=== PATIENT | female | born 1995 | race Two or more races ===

== ENCOUNTER 2020-04-07 09:06 | Outpatient (REF) | payer OTHER, SELFPAY ==
[2020-04-07 12:11] LABS: HIV AB/AG Nonreactive (Nonreactive); HIV Num 1 0.26 S/CO (0.00-0.99)
[2020-04-07 12:19] LABS: HBc Num1 0.15 S/CO (0.00-0.79); Hepatitis B Core Antibody Nonreactive (Nonreactive); ~HepC Num1 0.13 S/CO (0.00-0.79); ~Hepatitis C Antibody Nonreactive (Nonreactive)
[2020-04-08 07:14] LABS: Syphilis Screen Nonreactive (Nonreactive)
[2020-04-08 09:36] LABS: CT PCR NOT DETECTED (Not Detect.); NG PCR NOT DETECTED (Not Detect.)
[2020-04-08 09:42] LABS: Herpes Simplex Type 1 IgG 0.93 index
[2020-04-08 11:12] LABS: DHEA Sulfate 285 mcg/dL (18-391)
[2020-04-08 13:03] LABS: BV Int Neg Control Negative (Negative); BV Int Pos Control Positive (Positive)
[2020-04-11 19:08] LABS: Follicle Stimulating Hormone 4.4 mIU/mL; Prolactin 9.5 ng/mL
[2020-04-11 19:11] LABS: Testosterone, Free 5.7 pg/mL (0.1-6.4); Testosterone, Total 48 ng/dL (2-45)
[2020-04-12 21:21] LABS: HPV mRNA E6/E7 rflx Not Detected (Not Detected)
== END 2020-04-07 09:07 | disposition home or self-care (01) ==
LOC: HO.LAB 09:06
PROVIDERS: PCP Internal Medicine; Visit Provider Advanced Practice Midwife
DX: Z01.419 Encounter for gynecological examination (general) (routine) without abnormal findings (principal); Z20.2 Contact with and (suspected) exposure to infections with a predominantly sexual mode of transmission; L70.9 Acne, unspecified; N92.6 Irregular menstruation, unspecified
CPT/HCPCS: 82627; 83001; 83498; 84146; 84402; 84403; 84443; 86695; 86696; 86704; 86780; 86803; 87389; 87480; 87491; 87510; 87591; 87624; 87625; 87660; 88142

== ENCOUNTER → 2020-04-25 12:08 | Outpatient (BNVA) | payer OTHER, SELFPAY | PROVIDERS: PCP Internal Medicine; Referring Provider Internal Medicine; Visit Provider Advanced Practice Midwife | DX: Z76.89 Persons encountering health services in other specified circumstances (principal) ==

== ENCOUNTER 2020-09-22 13:23 | Outpatient (REF) | payer OTHER, SELFPAY ==
[2020-09-23 05:31] LABS: Herpes Simplex Type 1 IgG 1.28 index; Herpes Simplex Type 2 IgG 6.72 index
[2020-09-23 08:00] LABS: Syphilis Screen Nonreactive (Nonreactive)
[2020-09-23 08:51] LABS: HBS Num1 4.69 mIU/mL (0-7.99); HBc Num1 0.21 S/CO (0.00-0.79); HIV AB/AG Nonreactive (Nonreactive); HIV Num 1 0.08 S/CO (0.00-0.99); Hepatitis B Core Antibody Nonreactive (Nonreactive); ~Hepatitis B Surface Antibody NONREACTIVE (Nonreactive)
[2020-09-23 09:02] LABS: HBsAGNum1 0.18 S/CO (0.00-0.99); Hepatitis A Antibody IgM 0.25 Index (0-0.79); Hepatitis B Surface Antigen Negative (Negative); ~HepC Num1 0.17 S/CO (0.00-0.79); ~Hepatitis A Antibody IgM Nonreactive (Nonreactive); ~Hepatitis C Antibody Nonreactive (Nonreactive)
== END 2020-09-22 13:24 | disposition home or self-care (01) ==
LOC: HO.HMGCLDS 13:23
PROVIDERS: PCP Internal Medicine; Visit Provider Internal Medicine
DX: Z01.84 Encounter for antibody response examination (principal); Z11.3 Encounter for screening for infections with a predominantly sexual mode of transmission; Z11.4 Encounter for screening for human immunodeficiency virus [HIV]
CPT/HCPCS: 36415; 86695; 86696; 86704; 86706; 86709; 86780; 86803; 87340; 87389

== ENCOUNTER 2020-11-18 09:05 | Outpatient (REF) | payer OTHER, SELFPAY ==
[2020-11-18 11:18] LABS: MANUAL DIFF FLAG NO
[2020-11-18 11:25] LABS: Basophils Percent Auto 0.4 % (0-2); Eosinophils Absolute Auto 0.1 X10*3/uL (0.0-0.4); Eosinophils Percent Auto 1.6 % (0-4); Hematocrit 41.1 % (37-47); Hemoglobin 13.2 g/dl (12.0-16.0); Imm Gran Abs Auto 0.01 X10*3/uL (0.00-0.03); Imm Gran Pct Auto 0.2 % (0.0-0.4); Lymphocytes Absolute Auto 1.8 X10*3/uL (1.2-4.9); Lymphocytes Percent Auto 37.9 % (20-40); Mean Corpuscular HGB Conc 32.1 g/dl (31.0-35.0); Mean Corpuscular Hemoglobin 26.9 pg (27.0-33.0); Mean Corpuscular Volume 83.9 fL (80-98); Mean Platelet Volume 11.2 fL (9.4-12.3); Monocytes Absolute Auto 0.5 X10*3/uL (0.1-1.2); Monocytes Percent Auto 9.7 % (2-11); Neutrophils Absolute Auto 2.4 X10*3/uL (2.0-8.3); Neutrophils Percent Auto 50.2 % (45-73); Platelet Count 246 X10*3/uL (160-400); Red Cell Distribution Width 17.1 % (11.0-16.0); White Blood Count 4.9 X10*3/uL (4.8-10.8)
[2020-11-18 11:44] LABS: Alanine Aminotransferase 8 U/L (0-31); Albumin Level 4.3 g/dL (3.5-5.0); Alkaline Phosphatase 57 U/L (39-117); Anion Gap 11 (12-20); Aspartate Amino Transferase 22 U/L (5-31); Bilirubin Total 0.7 mg/dL (0.0-1.0); Blood Urea Nitrogen 6 mg/dL (9-16); Calcium 9.5 mg/dL (8.4-10.2); Carbon Dioxide 29 mmol/L (22-29); Chloride 103 mmol/L (96-108); Cholesterol 152 mg/dL; Estimated Glomerular Filt Rate > 60; Glucose Fasting 85 mg/dL (60-99); HDL Cholesterol 65 mg/dL; LDL Cholesterol Calculated 68 mg/dl; Potassium 4.3 mmol/L (3.3-5.1); Sodium 139 mmol/L (135-145); Total Protein 7.2 g/dL (6.5-8.0); Triglycerides 99 mg/dL
[2020-11-19 17:46] LABS: Rubeola IgG (Measles) >300.00 AU/mL
== END 2020-11-18 09:06 | disposition home or self-care (01) ==
LOC: HO.HMGCLDS 09:05
PROVIDERS: PCP Internal Medicine; Visit Provider Internal Medicine
DX: Z00.01 Encounter for general adult medical examination with abnormal findings (principal); G43.909 Migraine, unspecified, not intractable, without status migrainosus; Z28.3 Underimmunization status
CPT/HCPCS: 36415; 80053; 80061; 85025; 86735; 86762; 86765; 86787

== ENCOUNTER 2020-12-28 21:47 | Emergency (ER) | payer OTHER, SELFPAY ==
--- NOTE | 2020-12-28 22:44 | ED.SKABFB ---
HPI - Skin/Abscess/Foreign Bdy General Chief complaint: Skin/Abscess/Foreign Body Stated complaint: cyst on thigh Time Seen by Provider: 12/28/20 22:39 Source: patient Mode of arrival: ambulatory Limitations: no limitations History of Present Illness HPI narrative: Patient is a 25-year-old female with no significant past medical history you states she has an abscess on her left upper thigh, on the backside. She states has been there about a week, she thought it started when she broke a mirror and a piece of glass got stuck in there but she states it has been painful and has had slight drainage since. She denies fevers or streaking down her leg. Related Data Previous Rx's Medication Instructions Recorded valacyclovir 500 mg tablet 500 mg PO BID #60 tab 04/07/20 (Valtrex) prenat.vits,salvatore,[id number]-[id number]-rdeje 1 tab PO BEDTIME #30 tab 04/25/20 metronidazole 500 mg tablet 500 mg PO BID 7 Days #14 tab 05/11/20 (Flagyl) Allergies Allergy/AdvReac Type Severity Reaction Status Date / Time No Known Allergies Allergy Verified 12/28/20 22:49 Review of Systems Review of Systems: Yes all other systems are reviewed and are negative PMFSH Past Medical History Medical History Chlamydia HSV (herpes simplex virus) infection Surgical History Hx of wisdom tooth extraction Family History Family History Father No problems noted. Mother No problems noted. Social History Social History Housing: House Alcohol intake: never Patient Tobacco Use Status: Never used Tobacco Second Hand Smoke Exposure: No Advance Directives: No Advance Directives Information Provided: Yes Patient : No Current occupational status: employed Sexual orientation: Straight/Heterosexual Gender identity: female Physical Exam Vital Signs: Vital Signs: Last Vital Signs Temp 99.7 F 12/28/20 22:45 Pulse 102 H 12/28/20 22:45 Resp 16 12/28/20 22:45 BP 114/72 08/04/21 22:45 Pulse Ox 98 12/28/20 22:45 Body Mass Index 18.8 Const: General: cooperative, healthy appearing, comfortable and no acute distress Nutritional Appearance: thin Orientation/consciousness: patient oriented x3 Eyes: General: appearance normal, both eyes and all related structures Resp: Effort & Inspection: normal respiratory effort Skin: Other: Left posterior upper thigh, 1 cm erythematous raised area with purulence drainage, no warmth or erythema surrounding the abscess. Neuro: General: patient oriented x3 Course Course Course Narrative: Please note, the wound was already draining and did not need to be incised. I did numb the area with 2% lidocaine so I could express the drainage better and break up the loculations. Patient tolerated the procedure well. Procedures Abscess I/D Site: lower extremity (Posterior upper thigh) Side (if applicable): left Sedation/analgesia: none Local Anesthetic: lidocaine 2% Amount of anesthesia used (mL): 5 Amount of fluid expressed (mL): 5 Sent for culture/gram staining?: No Irrigation: Yes Packing used?: iodoform Complications: pain Discharge Plan Discharge Clinical Impression: Abscess Patient Disposition: Home, Self-Care Instructions: Abscess Follow-up (ED) Additional Instructions: As discussed, please change bandages once a day, keep the wound clean and dry. Please come back on Saturday morning to have the wound checked and the iodoform removed. If you notice the wound has redness and warmth around it or you spike a fever, please come back to the emergency room at that time. I have given you proper sterile dressing to apply to the wound to keep it clean and dry. You can come here for wound check or any urgent care or your PCP. Prescriptions: No Action metronidazole [Flagyl] 500 mg tablet 500 mg PO BID 7 Days Qty: 14 RF: 0 valacyclovir [Valtrex] 500 mg tablet 500 mg PO BID Qty: 60 RF: 1 prenat.vits,salvatore,[id number] Tablet 1 tab PO BEDTIME Qty: 30 RF: 11
[2020-12-28 22:45] VITALS: BP 114/72; PULSE 102; RESP 16; TEMP 37.6; O2SAT 98; BMI 18.8
[2020-12-28] MEDS: Lidocaine HCl 2 % MPF 5 ML VIAL SUBCUT (23:03)
== END 2020-12-28 23:35 | disposition home or self-care (01) ==
PROVIDERS: Emergency Provider Emergency Medicine Emergency Medical Services; PCP Internal Medicine
DX: L02.416 Cutaneous abscess of left lower limb (principal)
CPT/HCPCS: 10060; 99283; 99284

== ENCOUNTER 2021-02-22 13:30 | Outpatient (REF) | payer OTHER, SELFPAY ==
[2021-02-22 16:59] LABS: HCG Quantitative 20 mIU/mL
== END 2021-02-22 13:31 | disposition home or self-care (01) ==
LOC: HO.HMGCLDS 13:30
PROVIDERS: PCP Internal Medicine; Visit Provider Internal Medicine
DX: N92.6 Irregular menstruation, unspecified (principal)
CPT/HCPCS: 36415; 84702

== ENCOUNTER 2021-02-24 17:17 | Emergency (ER) | payer OTHER, SELFPAY ==
[2021-02-24 17:23] VITALS: BP 154/90; PULSE 87; RESP 18; TEMP 36.6; O2SAT 100; BMI 18.8
[2021-02-24 17:44] LABS: MANUAL DIFF FLAG NO
[2021-02-24 17:48] LABS: Basophils Percent Auto 0.3 % (0-2); Eosinophils Absolute Auto 0.1 X10*3/uL (0.0-0.4); Eosinophils Percent Auto 0.8 % (0-4); Hematocrit 39.6 % (37-47); Hemoglobin 13.1 g/dl (12.0-16.0); Imm Gran Abs Auto 0.02 X10*3/uL (0.00-0.03); Imm Gran Pct Auto 0.3 % (0.0-0.4); Lymphocytes Absolute Auto 1.2 X10*3/uL (1.2-4.9); Lymphocytes Percent Auto 16.4 % (20-40); Mean Corpuscular HGB Conc 33.1 g/dl (31.0-35.0); Mean Corpuscular Hemoglobin 27.7 pg (27.0-33.0); Mean Corpuscular Volume 83.7 fL (80-98); Mean Platelet Volume 10.6 fL (9.4-12.3); Monocytes Absolute Auto 0.5 X10*3/uL (0.1-1.2); Monocytes Percent Auto 6.4 % (2-11); Neutrophils Absolute Auto 5.7 X10*3/uL (2.0-8.3); Neutrophils Percent Auto 75.8 % (45-73); Platelet Count 236 X10*3/uL (160-400); Red Blood Count 4.73 X10*6/uL (4.20-5.50); Red Cell Distribution Width 15.1 % (11.0-16.0); White Blood Count 7.5 X10*3/uL (4.8-10.8)
[2021-02-24 18:01] LABS: Anion Gap 11 (12-20); Blood Urea Nitrogen 6 mg/dL (9-16); Carbon Dioxide 25 mmol/L (22-29); Chloride 107 mmol/L (96-108); Creatinine Clr Calc Pharmacy 87.5; Estimated Glomerular Filt Rate > 60; Glucose Random 110 mg/dL (60-115); Potassium 3.9 mmol/L (3.3-5.1); Sodium 139 mmol/L (135-145)
[2021-02-24 18:08] LABS: HCG Quantitative 5 mIU/mL
--- NOTE | 2021-02-24 21:10 | ED.PREGNANCY ---
HPI - General Chief complaint: Vaginal Bleeding Stated complaint: Vaginal bleeding/3-4 wks preg Time Seen by Provider: 02/24/21 20:42 Source: patient Mode of arrival: ambulatory Limitations: no limitations History of Present Illness HPI Narrative: Patient presents complaining of vaginal bleeding. 0130 Patient was seen here 2 days ago had an Hcg of 20 today for hcg is 5. Patient states that she did pass some blood with clots. Patient denies pain today as back pain at this moment and is here of nausea vomiting or diarrhea. Related Data Previous Rx's Medication Instructions Recorded valacyclovir 500 mg tablet 500 mg PO BID #60 tab 04/07/20 (Valtrex) prenat.vits,salvatore,[id number] 1 tab PO BEDTIME #30 tab 04/25/20 metronidazole 500 mg tablet 500 mg PO BID 7 Days #14 tab 05/11/20 (Flagyl) Allergies Allergy/AdvReac Type Severity Reaction Status Date / Time No Known Allergies Allergy Verified 12/28/20 22:49 Review of Systems Review of Systems: Review of systems: General: Patient denies any fever chills recent illness or falls Musculoskeletal: Denies back pain or body aches or other injuries HEENT: denies headache, runny nose, ear pain Respiratory: denies shortness of breath, cough Cardiovascular: no chest pain or palpitations : denies dysuria, frequency Abdomen: no nausea vomiting denies abdominal pain Extremities: no swelling, no pain Skin: no diaphoresis Yes all other systems are reviewed and are negative PMFSH Past Medical History Medical History Chlamydia HSV (herpes simplex virus) infection Surgical History Hx of wisdom tooth extraction Family History Family History Father No problems noted. Mother No problems noted. Social History Social History Housing: House Alcohol intake: never Patient Tobacco Use Status: Never used Tobacco Second Hand Smoke Exposure: No Advance Directives: No Advance Directives Information Provided: No Patient : Yes Current occupational status: employed Sexual orientation: Straight/Heterosexual Gender identity: Female Physical Exam Vital Signs: Vital Signs: Last Vital Signs Temp 97.8 F 02/24/21 17:23 Pulse 87 02/24/21 17:23 Resp 18 02/24/21 17:23 BP 154/90 H 02/24/21 17:23 Pulse Ox 100 02/24/21 17:23 Body Mass Index 18.8 General: Well-appearing well-nourished in no signs of distress HEENT: Normocephalic atraumatic Neck: No signs of JVD, no masses no tenderness or lymphadenopathy Cardiovascular: Regular rate and rhythm Respiratory: Clear to auscultation bilaterally Abdomen: Soft nontender no masses rectal exam performed guiac negative quality assurance/r&d lab technician confirmed. Extremities: Normal pedal pulses no signs of edema Skin: Dry warm no rashes Back: No tenderness full ROM MDM - OB/Uterine Contractions MDM Narrative Medical decision making narrative: Patient has an hCG of 5 I do not think there is a need for ultrasound with an hCG Roberto I will watch the patient here labs are normal I will send the patient home headaches that she is having miscarriage. Lab Data Result diagrams: 02/24/21 17:35 02/24/21 17:35 Labs: Lab Results 02/24/21 02/24/21 Range/Units 17:35 17:35 WBC 7.5 (4.8-10.8) X10*3/uL RBC 4.73 (4.20-5.50) X10*6/uL Hgb 13.1 (12.0-16.0) g/dl Hct 39.6 (37-47) % MCV 83.7 (80-98) fL MCH 27.7 (27.0-33.0) pg MCHC 33.1 (31.0-35.0) g/dl RDW 15.1 (11.0-16.0) % Plt Count 236 (160-400) X10*3/uL MPV 10.6 (9.4-12.3) fL Immature Gran % (Auto) 0.3 (0.0-0.4) % Neut % (Auto) 75.8 H (45-73) % Lymph % (Auto) 16.4 L (20-40) % [place] % (Auto) 6.4 (2-11) % Eos % (Auto) 0.8 (0-4) % Baso % (Auto) 0.3 (0-2) % Lymph # (Auto) 1.2 (1.2-4.9) X10*3/uL [place] # (Auto) 0.5 (0.1-1.2) X10*3/uL Eos # (Auto) 0.1 (0.0-0.4) X10*3/uL Baso # (Auto) 0.0 (0.0-0.2) X10*3/uL Abs Immat Gran (auto) 0.02 (0.00-0.03) X10*3/uL Absolute Neuts (auto) 5.7 (2.0-8.3) X10*3/uL Absolute Nucleated RBC 0.000 (0.0-0.012) X10*3/uL Nucleated RBC % (auto) 0.0 (0.0-0.2) /100WBC Sodium 139 (135-145) mmol/L Potassium 3.9 (3.3-5.1) mmol/L Chloride 107 (96-108) mmol/L Carbon Dioxide 25 (22-29) mmol/L Anion Gap 11 L (12-20) BUN 6 L (9-16) mg/dL Creatinine 0.71 (0.5-1.4) mg/dL Estim Creat Clear Calc 87.5 Estimated GFR > 60 Random Glucose 110 (60-115) mg/dL Calcium 10.0 (8.4-10.2) mg/dL Beta HCG, Quant 5 mIU/mL Discharge Plan Discharge Clinical Impression: , threatened, Miscarriage Patient Disposition: Home, Self-Care Instructions: Miscarriage (ED), Threatened Miscarriage (ED) Additional Instructions: Please call felt the need to have your HCT checked in the next week. If you have any other concerns please do not hesitate to come back to the emergency department. Prescriptions: No Action metronidazole [Flagyl] 500 mg tablet 500 mg PO BID 7 Days Qty: 14 RF: 0 valacyclovir [Valtrex] 500 mg tablet 500 mg PO BID Qty: 60 RF: 1 prenat.vits,salvatore,[id number] Tablet 1 tab PO BEDTIME Qty: 30 RF: 11
== END 2021-02-24 21:28 | disposition home or self-care (01) ==
PROVIDERS: Emergency Medicine Emergency Medical Services; Emergency Provider Student in an Organized Health Care Education/Training Program; PCP Internal Medicine
DX: O20.0 Threatened abortion (principal); Z79.899 Other long term (current) drug therapy
CPT/HCPCS: 36415; 80048; 84702; 85025; 99283

== ENCOUNTER 2021-04-10 08:12 | Outpatient (REF) | payer OTHER, SELFPAY ==
[2021-04-10 14:30] LABS: CT PCR NOT DETECTED (Not Detect.); NG PCR NOT DETECTED (Not Detect.)
== END 2021-04-10 08:13 | disposition home or self-care (01) ==
LOC: HO.LAB 08:12
PROVIDERS: PCP Internal Medicine; Visit Provider Advanced Practice Midwife
DX: Z01.411 Encounter for gynecological examination (general) (routine) with abnormal findings (principal); N92.6 Irregular menstruation, unspecified; Z20.2 Contact with and (suspected) exposure to infections with a predominantly sexual mode of transmission
CPT/HCPCS: 81025; 87491; 87591

== ENCOUNTER 2021-06-09 10:36 | Outpatient (REF) | payer OTHER, SELFPAY ==
[2021-06-09 12:20] LABS: HCG Quantitative 27 mIU/mL
== END 2021-06-09 10:37 | disposition home or self-care (01) ==
LOC: HO.LAB 10:36
PROVIDERS: PCP Internal Medicine; Visit Provider Advanced Practice Midwife
DX: Z34.90 Encounter for supervision of normal pregnancy, unspecified, unspecified trimester (principal); Z32.01 Encounter for pregnancy test, result positive; Z87.59 Personal history of other complications of pregnancy, childbirth and the puerperium
CPT/HCPCS: 36415; 81025; 84702; 99212

== ENCOUNTER 2021-06-12 10:51 | Outpatient (REF) | payer OTHER, SELFPAY ==
[2021-06-12 12:14] LABS: HCG Quantitative 147 mIU/mL
== END 2021-06-12 10:52 | disposition home or self-care (01) ==
LOC: HO.LAB 10:51
PROVIDERS: PCP Internal Medicine; Visit Provider Advanced Practice Midwife
DX: N92.6 Irregular menstruation, unspecified (principal); Z87.59 Personal history of other complications of pregnancy, childbirth and the puerperium
CPT/HCPCS: 36415; 84702

== ENCOUNTER 2021-06-30 13:29 | Outpatient (REF) | payer OTHER, SELFPAY ==
--- NOTE | ~2021-06-30 | US_ITS ---
EXAMINATION: OBSTETRICAL ULTRASOUND, FIRST TRIMESTER HISTORY: 25-year-old with the uncertain dates LMP: 04/10/2021 COMPARISON: None TECHNIQUE: Real time transabdominal imaging with color and M-mode Doppler. FINDINGS: A single, live IUP CRL of 5.7 mm c/w 6.3wks is noted. Heart Rate: 125 beats per minute. Both maternal ovaries are seen and appear normal. GESTATIONAL AGE: 1. GA from LMP: 11.4 wks 2. GA from AUA: 6.3 wks ESTIMATED DATE OF DELIVERY: 1. DAVINA from LMP: 01/15/2022 2. DAVINA from AUA: 02/20/2022 US/US OB pelvic and transvaginal IMPRESSION: 1. A single live IUP 2. Size less than dates, CRL corresponds to 6.3 weeks of gestation. Adjust her DAVINA to 02/20/2022 based on today's examination. 3. Normal ovaries Thank you very much for this referral. This note was generated with a voice recognition program. Please excuse any errors which may have been overlooked during my review of this note. Sometimes these errors may affect the content or meaning of a given sentence.
== END 2021-06-30 13:30 | disposition home or self-care (01) ==
LOC: HO.US 13:29
PROVIDERS: Visit Provider Advanced Practice Midwife
DX: N92.6 Irregular menstruation, unspecified (principal)
CPT/HCPCS: 76801; 76817

== ENCOUNTER 2021-07-26 15:13 | Emergency (ER) | payer MEDICAID, SELFPAY ==
--- NOTE | ~2021-07-26 | US_ITS ---
EXAMINATION: ULTRASOUND CLINICAL INFORMATION: 10 weeks with vaginal bleeding COMPARISON: 06/30/2021 TECHNIQUE: Limited ultrasound was performed. FINDINGS: A gestational sac is present with a fetus that was active during the exam. A normal heartbeat of 169 was present. [place]-rump length measurements correspond with a gestational age of 10 weeks 1 day with an DAVINA of 02/20/2022. There is a small area of subchorionic hemorrhage seen measuring 1.2 x 0.8 x 0.9 cm. The right ovary appeared normal measuring 2.6 x 2.1 x 2.6 cm The left ovary could not be seen. No free intraperitoneal fluid was detected. US/US OB limited IMPRESSION: Normal-appearing live fetus with gestational age estimated at 10 weeks 1 day with an DAVINA of 02/20/2022. A small area of subchorionic hemorrhage is noted.
[2021-07-26 16:35] VITALS: BP 119/69; PULSE 95; RESP 18; TEMP 37.1; O2SAT 100; BMI 18.8
[2021-07-26 16:50] LABS: MANUAL DIFF FLAG NO
[2021-07-26 16:52] LABS: Basophils Percent Auto 0.2 % (0-2); Eosinophils Percent Auto 0.2 % (0-4); Hematocrit 36.6 % (37.0-47.0); Hemoglobin 12.1 g/dl (12.0-16.0); Imm Gran Abs Auto 0.02 X10*3/uL (0.00-0.03); Imm Gran Pct Auto 0.2 % (0.0-0.4); Lymphocytes Absolute Auto 1.4 X10*3/uL (1.2-4.9); Lymphocytes Percent Auto 16.6 % (20-40); Mean Corpuscular HGB Conc 33.1 g/dl (31.0-35.0); Mean Corpuscular Volume 81.7 fL (80.0-98.0); Mean Platelet Volume 10.9 fL (9.4-12.3); Monocytes Absolute Auto 0.6 X10*3/uL (0.1-1.2); Monocytes Percent Auto 6.7 % (2-11); Neutrophils Absolute Auto 6.6 x10*3/uL (2.0-8.3); Neutrophils Percent Auto 76.1 % (45-73); Platelet Count 242 X10*3/uL (160-400); Red Blood Count 4.48 X10*6/uL (4.20-5.50); Red Cell Distribution Width 15.6 % (11.0-16.0); White Blood Count 8.7 X10*3/uL (4.8-10.8)
[2021-07-26 17:06] LABS: Anion Gap 11 (12-20); Blood Urea Nitrogen 8 mg/dL (9-16); Calcium 9.5 mg/dL (8.4-10.2); Carbon Dioxide 24 mmol/L (22-29); Chloride 105 mmol/L (96-108); Creatinine Clr Calc Pharmacy 101.8; Estimated Glomerular Filt Rate > 60; Glucose Random 86 mg/dL (60-115); Sodium 136 mmol/L (135-145)
--- NOTE | 2021-07-26 18:58 | PC.NURSE ---
at bedside for primary eval.
--- NOTE | 2021-07-26 19:03 | ED_ITS ---
HPI - General Adult General Chief complaint: OB Stated complaint: 10 weeks , bleeding Time Seen by Provider: 07/26/21 18:57 Source: patient Mode of arrival: ambulatory Limitations: no limitations History of Present Illness HPI narrative: 25 years old female 10 weeks came in for evaluation of vaginal bleeding. About 8 hours ago patient felt a gush of blood coming out of her vagina, patient been bleeding since then, use 2 pads with spots of blood in it but not soaked. Patient declined any trauma to the pelvic area, no history of abnormality. Related Data Previous Rx's Medication Instructions Recorded valacyclovir 500 mg tablet 500 mg PO BID #60 tab 04/07/20 (Valtrex) metronidazole 500 mg tablet 500 mg PO BID 7 Days #14 tab 05/11/20 (Flagyl) prenat.vits,salvatore,[id number]-hzla-ksxbp 1 tab PO BEDTIME #30 tab 04/10/21 cephalexin 500 mg capsule 500 mg PO Q8H #30 cap 05/10/21 sulfamethoxazole 800 1 tab PO Q12H #14 tab 05/10/21 mg-trimethoprim 160 mg tablet (Bactrim DS) Allergies Allergy/AdvReac Type Severity Reaction Status Date / Time No Known Allergies Allergy Verified 07/26/21 16:33 Review of Systems Review of Systems: All other systems are reviewed and are negative Constitutional: Reports as per HPI and Reports no additional constitutional complaints Eyes: Reports as per HPI and Reports no additional eye complaints Reports system reviewed and no additional complaints, except as documented Cardiovascular: Reports as per HPI and Reports no additional cardiovascular complaints Respiratory: Reports as per HPI and Reports no additional respiratory complaints Gastrointestinal: Reports as per HPI and Reports no additional gastrointestinal complaints Genitourinary: Reports no additional female genitourinary complaints Musculoskeletal: Reports no additional musculoskeletal complaints Skin/Breast: Reports system reviewed and no additional complaints, except as doc u Psychiatric: Reports no additional psychiatric complaints Endocrine: Reports no additional endocrine complaints Hematologic/Lymphatic: Reports no additional hematologic/lymphatic complaints Allergic/Immunologic: Reports no additional allergic/immunologic complaints Reports system reviewed and no additional complaints, except as documented and Reports Abnormal speech present [facility] Past Medical History Medical History History of spontaneous HSV (herpes simplex virus) infection Surgical History Hx of wisdom tooth extraction Family History Family History Father No problems noted. Mother Colon cancer Social History Social History Housing: House Alcohol intake: never Patient Tobacco Use Status: Never used Tobacco Second Hand Smoke Exposure: No Advance Directives: No Advance Directives Information Provided: No Patient : Yes Current occupational status: employed Sexual orientation: Straight/Heterosexual Gender identity: Female Physical Exam ED Vital Signs: Vital Signs - 24 hr 07/26/21 16:35 07/26/21 19:12 Temperature 98.7 F 98.1 F Pulse Rate 95 72 Respiratory Rate 18 14 Blood Pressure 119/69 120/74 Pulse Oximetry 100 100 BMI result Body Mass Index 18.8 Vital signs have been reviewed as appeared to be correct. Blood pressure normal. Heart rate normal. Respiration rate normal. Temperature normal. Oxygen saturation normal. Appearance: Alert. Oriented X3. No acute distress. Head: Normal external exam. Normocephalic. Atraumatic. No Portillo signs noted. No raccoon eyes noted Eyes: PERRLA. EOMI. Conjunctiva and sclera normal. Eyelids normal. ENT: TM's Normal. Pharynx normal. Uvula midline. Moist mucous membranes. No trismus noted. No drooling noted. No muffled voice noted. Neck: Normal inspection. Neck supple. FROM. No adenopathy. Thyroid Normal. No meningeal signs. No neck mass noted. CVS: Normal heart rate and rhythm. Heart sound normal. No murmurs noted. Pulses normal throughout. Respiratory: No respiratory distress. Painless inspiration. Breath sounds normal. No wheezes/rales/rhonchi noted. Chest nontender. No accessory muscle usage noted or decreased air movement noted. Abdomen: Soft and nontender. Bowel sounds normal in all 4 quadrants. No distention noted. No organomegaly noted. No visible injury noted. Back: No CVA tenderness. Full range of motion noted. Skin: Skin warm and dry. Normal skin color. Normal skin turgor. No rashes/lesions/lacerations noted. Extremities: No lower extremity edema. Extremities exhibit normal range of motion. Extremities nontender. Neuro: Oriented X 3. Cranial nerve exam: II-XII are grossly intact No motor deficit. No sensory deficit. Reflexes normal. Course Course Course Narrative: Assessment and plan. 25-year-old female 10 weeks came in with vaginal bleeding, labs and ultrasound are consistent with threatened . Patient was instructed to rest, no strenuous activity, no intercourse, and follow-up with her OBGYN. Blood type is A-positive. Medical Decision Making Medical Records Medical records reviewed: Yes I reviewed the patient's medical records. Lab Data Lab results reviewed: Yes I reviewed the patient's lab results. Result diagrams: 07/26/21 16:41 07/26/21 16:41 Labs: Lab Results 07/26/21 07/26/21 07/26/21 Range/Units 16:41 16:41 16:41 WBC 8.7 (4.8-10.8) X10*3/uL RBC 4.48 (4.20-5.50) X10*6/uL Hgb 12.1 (12.0-16.0) g/dl Hct 36.6 L (37.0-47.0) % MCV 81.7 (80.0-98.0) fL MCH 27.0 (27.0-33.0) pg MCHC 33.1 (31.0-35.0) g/dl RDW 15.6 (11.0-16.0) % Plt Count 242 (160-400) X10*3/uL MPV 10.9 (9.4-12.3) fL Immature Gran % (Auto) 0.2 (0.0-0.4) % Neut % (Auto) 76.1 H (45-73) % Lymph % (Auto) 16.6 L (20-40) % [place] % (Auto) 6.7 (2-11) % Eos % (Auto) 0.2 (0-4) % Baso % (Auto) 0.2 (0-2) % Lymph # (Auto) 1.4 (1.2-4.9) X10*3/uL [place] # (Auto) 0.6 (0.1-1.2) X10*3/uL Eos # (Auto) 0.0 (0.0-0.4) X10*3/uL Baso # (Auto) 0.0 (0.0-0.2) X10*3/uL Abs Immat Gran (auto) 0.02 (0.00-0.03) X10*3/uL Absolute Neuts (auto) 6.6 (2.0-8.3) x10*3/uL Absolute Nucleated RBC 0.000 (0.0-0.012) X10*3/uL Nucleated RBC % (auto) 0.0 (0.0-0.2) /100WBC Sodium 136 (135-145) mmol/L Potassium 4.0 (3.3-5.1) mmol/L Chloride 105 (96-108) mmol/L Carbon Dioxide 24 (22-29) mmol/L Anion Gap 11 L (12-20) BUN 8 L (9-16) mg/dL Creatinine 0.61 (0.5-1.4) mg/dL Estim Creat Clear Calc 101.8 Estimated GFR > 60 Random Glucose 86 (60-115) mg/dL Calcium 9.5 (8.4-10.2) mg/dL Beta HCG, Quant 660013 mIU/mL Blood Type A Positive Imaging Data Pelvic ultrasound: Attestation: I personally reviewed and interpreted this imaging study as follows: Radiologist's impression: Normal-appearing live fetus with gestational age estimated at 10 weeks 1 day with an DAVINA of 02/20/2022. A small area of subchorionic hemorrhage is noted.? Discharge Plan Discharge Clinical Impression: Threatened Patient Disposition: Home, Self-Care Instructions: Threatened Miscarriage (ED) Additional Instructions: Avoid any strenuous activity, no exercising, no heavy lifting, no bending, no bearing down, no sexual intercourse. Prescriptions: No Action metronidazole [Flagyl] 500 mg tablet 500 mg PO BID 7 Days Qty: 14 0RF cephalexin 500 mg capsule 500 mg PO Q8H Qty: 30 0RF sulfamethoxazole-trimethoprim [Bactrim DS] 800-160 mg tablet 1 tab PO Q12H Qty: 14 0RF valacyclovir [Valtrex] 500 mg tablet 500 mg PO BID Qty: 60 1RF Rx Instructions: take with onset on of symptoms, take for three days, may repeat dosing per episode prn prenat.vits,salvatore,[id number]-ttco-eiesk Tablet 1 tab PO BEDTIME Qty: 30 11RF Referrals: Cal Gallardo MD [Primary Care Provider] - 2 days Stand Alone Forms: Work/School Release
[2021-07-26 19:12] VITALS: BP 120/74; PULSE 72; RESP 14; TEMP 36.7; O2SAT 100
--- NOTE | 2021-07-26 19:51 | PC.NURSE ---
Pt off to U/S @ this time.
--- NOTE | 2021-07-26 21:13 | PC.NURSE ---
at bedside discussing U/S results.
== END 2021-07-26 21:36 | disposition home or self-care (01) ==
PROVIDERS: Emergency Provider Emergency Medicine; PCP Internal Medicine
DX: O20.0 Threatened abortion (principal); Z3A.10 10 weeks gestation of pregnancy
CPT/HCPCS: 36415; 76815; 80048; 84702; 85025; 86900; 86901; 99283; 99284

== ENCOUNTER 2021-08-01 13:24 | Outpatient (REF) | payer MEDICAID, SELFPAY ==
[2021-08-02 09:35] LABS: CT PCR NOT DETECTED (Not Detect.); NG PCR NOT DETECTED (Not Detect.)
[2021-08-02 10:07] LABS: BV Int Neg Control Negative (Negative); BV Int Pos Control Positive (Positive)
== END 2021-08-01 13:25 | disposition home or self-care (01) ==
LOC: HO.LAB 13:24
PROVIDERS: PCP Internal Medicine; Visit Provider Advanced Practice Midwife
DX: O46.90 Antepartum hemorrhage, unspecified, unspecified trimester (principal)
CPT/HCPCS: 87480; 87491; 87510; 87591; 87660; 99212

== ENCOUNTER → 2021-08-16 09:52 | Outpatient (BNVA) | payer MEDICAID, SELFPAY | PROVIDERS: PCP Internal Medicine; Visit Provider Advanced Practice Midwife | DX: O98.311 Other infections with a predominantly sexual mode of transmission complicating pregnancy, first trimester (principal); Z3A.13 13 weeks gestation of pregnancy | CPT/HCPCS: 99212 ==

== ENCOUNTER 2021-08-21 12:55 | Outpatient (REF) | payer MEDICAID, SELFPAY ==
[2021-08-21 14:55] LABS: Hematocrit 37.3 % (37.0-47.0); Hemoglobin 12.4 g/dl (12.0-16.0); Mean Corpuscular HGB Conc 33.2 g/dl (31.0-35.0); Mean Corpuscular Hemoglobin 27.3 pg (27.0-33.0); Mean Platelet Volume 10.6 fL (9.4-12.3); Platelet Count 254 X10*3/uL (160-400); Red Blood Count 4.55 X10*6/uL (4.20-5.50); White Blood Count 8.6 X10*3/uL (4.8-10.8)
[2021-08-21 15:14] LABS: Glucose 1 Hour PP 50gm Dose 108 mg/dL (60-140)
[2021-08-21 15:21] LABS: Amphetamine Screen Urine Not Detected (Not Detect); Barbiturates, Urine Not Detected (Not Detect); Benzodiazepines Screen Urine Not Detected (Not Detect); Cannabinoid Screen Urine Not Detected (Not Detect); Cocaine Screen Urine Not Detected (Not Detect); Fentanyl, urine Not Detected (Not Detect); Opiate Screen Urine Not Detected (Not Detect); Phencyclidine Screen Urine Not Detected (Not Detect)
[2021-08-21 15:33] LABS: Syphilis Screen Nonreactive (Nonreactive)
[2021-08-22 04:20] LABS: HBsAGNum1 0.22 S/CO (0.00-0.99); Hepatitis B Surface Antigen Negative (Negative)
[2021-08-22 04:26] LABS: HIV AB/AG Nonreactive (Nonreactive); HIV Num 1 0.12 S/CO (0.00-0.99); ~Hepatitis C Antibody Nonreactive (Nonreactive)
== END 2021-08-21 12:56 | disposition home or self-care (01) ==
LOC: HO.LAB 12:55
PROVIDERS: Visit Provider Advanced Practice Midwife
DX: Z32.01 Encounter for pregnancy test, result positive (principal)
CPT/HCPCS: 80307; 85027; 86762; 86780; 86787; 86803; 86850; 86900; 86901; 87086; 87088; 87186; 87340; 87389

== ENCOUNTER 2021-08-25 11:31 | Outpatient (REF) | payer MEDICAID, SELFPAY ==
--- NOTE | ~2021-08-25 | US_ITS ---
EXAMINATION: OBSTETRICAL ULTRASOUND, FIRST TRIMESTER HISTORY: 26-year-old at the 14.3 weeks of gestation NT screening COMPARISON: 07/26/2021 TECHNIQUE: Real time transabdominal imaging with color and M-mode Doppler. FINDINGS: A single, live IUP CRL of 81.9 mm c/w 14.2wks is noted. Heart Rate: 150 beats per minute. Normal yolk sac seen. NT was 1.23.mm. NB Present The embryo appears sonographically wnl for this GA. Both maternal ovaries are seen and appear normal. GESTATIONAL AGE: 1. Established GA: 14.3 wks 2. GA from AUA: 14.2 wks ESTIMATED DATE OF DELIVERY: 1. Established DAVINA: 02/20/2022 2. DAVINA from AUA: 02/21/2022 US/US OB 1T nuc measure IMPRESSION: 1. A single live IUP 2. Size equals dates 3. NT of 1.2 to 3 mm MFM Consultation: I reviewed the ultrasound findings along with significance of NT measurement. The NT of less than 3mm is generally reassuring. However, the sensitivity for T21 detection is only 60%. I reviewed the availability of serum aneuploidy screening which includes cell-free DNA and placental protein based tests. I discussed the sensitivity, false-positive rate, and other limitations associated with each test. I also reviewed the availability of invasive diagnostic tests that are associated small but definite risk of miscarriage. We also reviewed the differences between screening tests and diagnostic tests. After our discussion, she opted for the First trimester screening that is based on cell-free DNA or non-invasive testing (NIPT). The result will be faxed to your office in approximately 7 days. A follow up at 18 weeks for survey has been scheduled. Thank you very much for this referral. Total time 30 minutes. The time spent was devoted to counseling the patient about the disease and diagnosis, coordinating care including reviewing her records, pertinent lab data and studies, as well as discussing diagnostic evaluation and workup, plan therapeutic interventions and future disposition of care. This includes any additional research needed to obtain further information in formulating the plan of care of this patient. This note was generated with a voice recognition program. Please excuse any errors which may have been overlooked during my review of this note. Sometimes these errors may affect the content or meaning of a given sentence.
== END 2021-08-25 11:32 | disposition home or self-care (01) ==
LOC: HO.US 11:31
PROVIDERS: PCP Internal Medicine; Visit Provider Advanced Practice Midwife
DX: Z34.92 Encounter for supervision of normal pregnancy, unspecified, second trimester (principal); Z3A.14 14 weeks gestation of pregnancy
CPT/HCPCS: 76813

== ENCOUNTER → 2021-09-07 08:23 | Outpatient (BNVA) | payer MEDICAID, SELFPAY | PROVIDERS: Visit Provider Advanced Practice Midwife | DX: O23.42 Unspecified infection of urinary tract in pregnancy, second trimester (principal); N39.0 Urinary tract infection, site not specified; O09.292 Supervision of pregnancy with other poor reproductive or obstetric history, second trimester; Z3A.16 16 weeks gestation of pregnancy | CPT/HCPCS: 81003; 99212 ==

== ENCOUNTER 2021-09-22 10:35 | Outpatient (REF) | payer MEDICAID, SELFPAY ==
--- NOTE | ~2021-09-22 | US_ITS ---
EXAMINATION: US OBSTETRICAL CLINICAL INFORMATION: 26-year-old at 18.3 weeks of gestation Suspected anomaly COMPARISON: 08/25/2021 TECHNIQUE: Real-time transabdominal ultrasound was performed using C1-5 megahertz transducer. FINDINGS: A single, active, fetus is seen in vertex presentation. The placenta is anterior without previa, and the amniotic fluid volume is wnl. MEASUREMENTS: 1. Biparietal Diameter: 3.8 cm; 17.4 wks 2. Occipital Frontal Diameter: 5.1 cm 3. Head Circumference: 14.2 cm; 17.4 wks 4. Abdominal Circumference: 12.2 cm; 18.0 wks 5. Femur Length: 2.7 cm; 18.2 wks 6. Tibia Length: 2.3 cm; 18.1 wks 7. Ulna Length: 2.3 cm; 18.2 wks 8. Lateral ventricle: 5.8 cm 9. Cerebellum: 1.84 cm; 19.1 wks 10. Cisterna Magna: 0.3 cm 11. Nuchal Fold: 4.3 mm 12. Heart Rate: 149 beats per minute Rt ovary: normal Lt ovary: normal Cervical length 2.9 cm on T/A. GESTATIONAL AGE: 1. Established GA: 18.3 wks 2. GA from [facility]: 17.6 wks ESTIMATED DATE OF DELIVERY: 1. Established DAVINA: 02/20/2022 2. DAVINA from [facility]: 02/24/2022 ANATOMY: The visualized anatomy includes but not limited to: 1. Cranium: Normal 2. Intracranial anatomy: cavum septum pellucidi, lateral ventricles, choroid plexus, cerebellum, posterior fossa, third and fourth ventricles. 3. face: orbits, lip/palate, profile, nasal bone 4. Heart: four-chamber view of the heart, ventricular septum, foramen ovale, pulmonary vein, left and right outflow tracts, three-vessel view, 3 vessel trachea view, aortic and ductal arches, situs.. 5. Diaphragm: Normal 6. Abdominal wall: Normal 7. Cord Insertion: Normal 8. Spine: Cervical, thoracic, lumbar, sacral. 9. Stomach: Normal size and shape 10. Right Kidney: Normal 11. Left Kidney: Normal 12. 3 vessel cord: Normal 13. Upper extremity: Open hands, fifth digit. 14. Lower extremity: Tibia, fibula, bilateral feet. 15. Bladder: Normal 16. Genitalia: Female, patient aware US/US OB /maternal detail IMPRESSION: 1. Single, living, intrauterine with appropriate biometry. 2. Normal survey DISCUSSION: I reviewed today's ultrasound findings. We discussed the limitations of ultrasound in diagnosing aneuploidy and other congenital abnormalities. I reviewed the differences between screening test and diagnostic test. Amniocentesis was discussed and declined. She was informed that the baseline incidence of congenital abnormalities is approximately 3-5%. Not all these conditions are diagnosable in utero. RECOMMENDATIONS: 1. Follow-up when necessary Thank you for allowing me to participate in her care. Total time 20 minutes. The time spent was devoted to counseling the patient about the disease and diagnosis, coordinating care including reviewing her records, pertinent lab data and studies, as well as discussing diagnostic evaluation and workup, plan therapeutic interventions and future disposition of care. This includes any additional research needed to obtain further information in formulating the plan of care of this patient. This note was generated with a voice recognition program. Please excuse any errors which may have been overlooked during my review of this note. Sometimes these errors may affect the content or meaning of a given sentence.
== END 2021-09-22 10:36 | disposition home or self-care (01) ==
LOC: HO.US 10:35
PROVIDERS: Visit Provider Advanced Practice Midwife
DX: Z36.3 Encounter for antenatal screening for malformations (principal); Z34.92 Encounter for supervision of normal pregnancy, unspecified, second trimester; Z3A.18 18 weeks gestation of pregnancy
CPT/HCPCS: 76811

== ENCOUNTER → 2021-10-06 09:36 | Outpatient (BNVA) | payer MEDICAID, SELFPAY | PROVIDERS: Visit Provider Advanced Practice Midwife | DX: O23.42 Unspecified infection of urinary tract in pregnancy, second trimester (principal); Z3A.20 20 weeks gestation of pregnancy | CPT/HCPCS: 99212 ==

== ENCOUNTER 2021-10-07 10:04 | Outpatient (REF) | payer MEDICAID, SELFPAY ==
[2021-10-07 11:05] LABS: Appearance Urine HAZY; Color Urine YELLOW; Glucose Urine UA NEG (NEG); Leukocyte Esterase Urine NEG (NEG); Nitrite Urine NEG (NEG); Specific Gravity - Urine 1.025 (1.005-1.025); Urine Blood NEG (NEG); Urine Ketones NEG (NEG); Urine Protein NEG (NEG-TRACE)
== END 2021-10-07 10:05 | disposition home or self-care (01) ==
LOC: HO.LAB 10:04
PROVIDERS: Visit Provider Advanced Practice Midwife
DX: O23.42 Unspecified infection of urinary tract in pregnancy, second trimester (principal)
CPT/HCPCS: 81003; 87086

== ENCOUNTER → 2021-11-03 09:29 | Outpatient (BNVA) | payer MEDICAID, SELFPAY | PROVIDERS: Visit Provider Advanced Practice Midwife | DX: O98.312 Other infections with a predominantly sexual mode of transmission complicating pregnancy, second trimester (principal); A60.00 Herpesviral infection of urogenital system, unspecified; Z3A.24 24 weeks gestation of pregnancy | CPT/HCPCS: 99212 ==

== ENCOUNTER 2021-11-30 10:06 | Outpatient (REF) | payer OTHER, SELFPAY ==
[2021-11-30 12:02] LABS: Hematocrit 35.3 % (37.0-47.0); Hemoglobin 11.7 g/dl (12.0-16.0); Mean Corpuscular HGB Conc 33.1 g/dl (31.0-35.0); Mean Corpuscular Hemoglobin 28.6 pg (27.0-33.0); Mean Corpuscular Volume 86.3 fL (80.0-98.0); Mean Platelet Volume 10.5 fL (9.4-12.3); Platelet Count 241 X10*3/uL (160-400); Red Blood Count 4.09 X10*6/uL (4.20-5.50); Red Cell Distribution Width 14.5 % (11.0-16.0)
[2021-11-30 12:19] LABS: Glucose 1 Hour PP 50gm Dose 144 mg/dL (60-140)
[2021-11-30 12:31] LABS: Alanine Aminotransferase 11 U/L (0-31); Albumin Level 3.7 g/dL (3.5-5.0); Alkaline Phosphatase 88 U/L (39-117); Anion Gap 11 (12-20); Aspartate Amino Transferase 20 U/L (5-31); Bilirubin Total 0.8 mg/dL (0.0-1.0); Blood Urea Nitrogen 5 mg/dL (9-16); Calcium 8.9 mg/dL (8.4-10.2); Carbon Dioxide 25 mmol/L (22-29); Chloride 103 mmol/L (96-108); Estimated Glomerular Filt Rate > 60; Glucose Random 148 mg/dL (60-115); Sodium 135 mmol/L (135-145)
[2021-12-01 07:36] LABS: Syphilis Screen Nonreactive (Nonreactive)
== END 2021-11-30 10:07 | disposition home or self-care (01) ==
LOC: HO.LAB 10:06
PROVIDERS: Absent Provider Advanced Practice Midwife; PCP Internal Medicine; Visit Provider Internal Medicine
DX: Z34.92 Encounter for supervision of normal pregnancy, unspecified, second trimester (principal)
CPT/HCPCS: 36415; 80053; 84443; 85027; 86780

== ENCOUNTER → 2021-12-01 09:18 | Outpatient (BNVA) | payer OTHER, SELFPAY | PROVIDERS: PCP Internal Medicine; Visit Provider Advanced Practice Midwife | DX: O99.810 Abnormal glucose complicating pregnancy (principal); O98.313 Other infections with a predominantly sexual mode of transmission complicating pregnancy, third trimester; A60.00 Herpesviral infection of urogenital system, unspecified; Z3A.28 28 weeks gestation of pregnancy | CPT/HCPCS: 81003; 99212 ==

== ENCOUNTER 2021-12-04 07:01 | Outpatient (REF) | payer OTHER, SELFPAY | END 2021-12-04 07:02 | disposition home or self-care (01) | LOC: HO.LAB 07:01 | PROVIDERS: PCP Internal Medicine; Visit Provider Advanced Practice Midwife | DX: Z13.89 Encounter for screening for other disorder (principal) | CPT/HCPCS: 36415; 82951 ==

== ENCOUNTER 2021-12-08 07:59 | Outpatient (REF) | payer OTHER, SELFPAY ==
[2021-12-08 08:59] LABS: Glucose Fasting 71 mg/dL (60-99)
[2021-12-08 10:10] LABS: Glucose 1 Hour 100 mg/dL
[2021-12-08 11:05] LABS: Glucose 2 Hour 137 mg/dL
[2021-12-08 12:42] LABS: Glucose 3 Hour 125 mg/dL
== END 2021-12-08 08:00 | disposition home or self-care (01) ==
LOC: HO.LAB 07:59
PROVIDERS: PCP Internal Medicine; Visit Provider Advanced Practice Midwife
DX: O99.810 Abnormal glucose complicating pregnancy (principal)
CPT/HCPCS: 36415; 82951

== ENCOUNTER → 2021-12-15 09:14 | Outpatient (BNVA) | payer OTHER, SELFPAY | PROVIDERS: PCP Internal Medicine; Visit Provider Advanced Practice Midwife | DX: O98.313 Other infections with a predominantly sexual mode of transmission complicating pregnancy, third trimester (principal); A60.00 Herpesviral infection of urogenital system, unspecified; O99.810 Abnormal glucose complicating pregnancy; Z3A.30 30 weeks gestation of pregnancy | CPT/HCPCS: 81003; 99212 ==

== ENCOUNTER → 2021-12-22 09:18 | Outpatient (BNVA) | payer OTHER, SELFPAY | PROVIDERS: PCP Internal Medicine; Visit Provider Advanced Practice Midwife | DX: O98.513 Other viral diseases complicating pregnancy, third trimester (principal); B00.9 Herpesviral infection, unspecified; O99.810 Abnormal glucose complicating pregnancy; O09.293 Supervision of pregnancy with other poor reproductive or obstetric history, third trimester; Z3A.31 31 weeks gestation of pregnancy | CPT/HCPCS: 81003; 99212 ==

== ENCOUNTER → 2021-12-29 09:15 | Outpatient (BNVA) | payer OTHER, SELFPAY | PROVIDERS: PCP Internal Medicine; Visit Provider Advanced Practice Midwife | DX: Z34.03 Encounter for supervision of normal first pregnancy, third trimester (principal); Z3A.32 32 weeks gestation of pregnancy | CPT/HCPCS: 81003; 99212 ==

== ENCOUNTER → 2022-01-12 11:42 | Outpatient (BNVA) | payer OTHER, SELFPAY | PROVIDERS: PCP Internal Medicine; Visit Provider Advanced Practice Midwife | DX: O98.513 Other viral diseases complicating pregnancy, third trimester (principal); O32.9XX0 Maternal care for malpresentation of fetus, unspecified, not applicable or unspecified; Z3A.34 34 weeks gestation of pregnancy | CPT/HCPCS: 81003; 99212 ==

== ENCOUNTER 2022-01-19 13:03 | Outpatient (REF) | payer OTHER, SELFPAY ==
--- NOTE | ~2022-01-19 | US_ITS ---
EXAMINATION: US OBSTETRICAL FOLLOW UP WITH BIOPHYSICAL PROFILE US OB VELOCITY UMBILICAL ARTERY CLINICAL INFORMATION: History of small for dates. surveillance. COMPARISON: Pelvic ultrasound from 09/22/2021. TECHNIQUE: Real time transabdominal imaging the uterus with color and M-mode Doppler. Duplex Doppler imaging evaluation of umbilical artery is performed. POSITION: Cephalic PLACENTA: Anterior; normal echotexture for dates AMNIOTIC FLUID INDEX: 13.4 cm MEASUREMENTS: The initial dating ultrasound dated provided an estimated date of delivery of 02/20/2022. This would project today to a of 35 weeks, 3 days. biometric measurements are as follows: Biparietal Diameter: 8.15 cm (32 weeks, 6 days) Occipital Frontal Diameter: 10.55 cm (32 weeks, 2 days) Head Circumference: 30.09 cm (33 weeks, 3 days) Abdominal Circumference: 27.19 cm (31 weeks, 2 days) Femur Length: 6.45 cm (33 weeks, 3 days) The standard deviation for the above measurements is +/- 3 weeks. The current AUA is 32 weeks, 6 days (i.e., small for dates). ESTIMATED WEIGHT: The EFW is 1930 grams +/- 282 grams (4 lbs 4 oz +/- 10 oz). < 2nd percentile. BIOPHYSICAL PROFILE: Biophysical profile is performed to assess breathing, gross body movement, tone, and qualitative amniotic fluid volume. Each matrix is scored 0 or 2, depending if the metric is present. Maximum total score possible is 8. Motion: 2 Tone: 2 Breathing: Observed, but not seen to be continuous Amniotic Fluid: 2 Total score: 6 HR: 146 bpm UMBILICAL ARTERY ASSESSMENT: A normal S/D ratio of 2.5 is detected. US/US OB follow up IMPRESSION: * Findings of intrauterine growth restriction with current ultrasound dates of 32 weeks, 6 days. * The EFW is 1930 grams +/- 282 grams, < 2nd percentile. * Normal amniotic fluid index is observed. * Biophysical profile score of 6 out of 8.
--- NOTE | ~2022-01-19 | US_ITS ---
EXAMINATION: US OBSTETRICAL FOLLOW UP WITH BIOPHYSICAL PROFILE US OB VELOCITY UMBILICAL ARTERY CLINICAL INFORMATION: History of small for dates. surveillance. COMPARISON: Pelvic ultrasound from 09/22/2021. TECHNIQUE: Real time transabdominal imaging the uterus with color and M-mode Doppler. Duplex Doppler imaging evaluation of umbilical artery is performed. POSITION: Cephalic PLACENTA: Anterior; normal echotexture for dates AMNIOTIC FLUID INDEX: 13.4 cm MEASUREMENTS: The initial dating ultrasound dated provided an estimated date of delivery of 02/20/2022. This would project today to a of 35 weeks, 3 days. biometric measurements are as follows: Biparietal Diameter: 8.15 cm (32 weeks, 6 days) Occipital Frontal Diameter: 10.55 cm (32 weeks, 2 days) Head Circumference: 30.09 cm (33 weeks, 3 days) Abdominal Circumference: 27.19 cm (31 weeks, 2 days) Femur Length: 6.45 cm (33 weeks, 3 days) The standard deviation for the above measurements is +/- 3 weeks. The current AUA is 32 weeks, 6 days (i.e., small for dates). ESTIMATED WEIGHT: The EFW is 1930 grams +/- 282 grams (4 lbs 4 oz +/- 10 oz). < 2nd percentile. BIOPHYSICAL PROFILE: Biophysical profile is performed to assess breathing, gross body movement, tone, and qualitative amniotic fluid volume. Each matrix is scored 0 or 2, depending if the metric is present. Maximum total score possible is 8. Motion: 2 Tone: 2 Breathing: Observed, but not seen to be continuous Amniotic Fluid: 2 Total score: 6 HR: 146 bpm UMBILICAL ARTERY ASSESSMENT: A normal S/D ratio of 2.5 is detected. US/US OB velocimetry umbilical ar IMPRESSION: * Findings of intrauterine growth restriction with current ultrasound dates of 32 weeks, 6 days. * The EFW is 1930 grams +/- 282 grams, < 2nd percentile. * Normal amniotic fluid index is observed. * Biophysical profile score of 6 out of 8.
== END 2022-01-19 13:04 | disposition home or self-care (01) ==
LOC: HO.US 13:03
PROVIDERS: Visit Provider Advanced Practice Midwife
DX: O32.9XX0 Maternal care for malpresentation of fetus, unspecified, not applicable or unspecified (principal); Z3A.35 35 weeks gestation of pregnancy
CPT/HCPCS: 76816; 76820; 99212

== ENCOUNTER 2022-05-22 15:17 | Outpatient (REF) | payer OTHER, SELFPAY ==
[2022-05-23 06:39] LABS: Syphilis Screen Nonreactive (Nonreactive)
[2022-05-23 11:58] LABS: HIV AB/AG Nonreactive (Nonreactive); HIV Num 1 0.07 S/CO (0.00-0.99)
[2022-05-23 13:45] LABS: CT PCR NOT DETECTED (Not Detect.); NG PCR NOT DETECTED (Not Detect.)
== END 2022-05-22 15:18 | disposition home or self-care (01) ==
LOC: HO.HMGCLDS 15:17
PROVIDERS: PCP Internal Medicine; Visit Provider Internal Medicine
DX: Z11.3 Encounter for screening for infections with a predominantly sexual mode of transmission (principal); Z11.4 Encounter for screening for human immunodeficiency virus [HIV]
CPT/HCPCS: 36415; 86780; 87389; 87491; 87591

== ENCOUNTER 2022-06-19 08:18 | Outpatient (REF) | payer OTHER, SELFPAY ==
[2022-06-19 11:09] LABS: CT PCR NOT DETECTED (Not Detect.); NG PCR NOT DETECTED (Not Detect.)
[2022-06-20 07:45] LABS: Syphilis Screen Nonreactive (Nonreactive)
[2022-06-20 08:44] LABS: HBc Num1 0.16 S/CO (0.00-0.79); HIV AB/AG Nonreactive (Nonreactive); HIV Num 1 0.07 S/CO (0.00-0.99); Hepatitis B Core Antibody Nonreactive (Nonreactive); ~HepC Num1 0.12 S/CO (0.00-0.79); ~Hepatitis C Antibody Nonreactive (Nonreactive)
[2022-06-20 11:31] LABS: BV Int Neg Control Negative (Negative); BV Int Pos Control Positive (Positive)
== END 2022-06-19 08:19 | disposition home or self-care (01) ==
LOC: HO.LAB 08:18
PROVIDERS: PCP Internal Medicine; Visit Provider Advanced Practice Midwife
DX: Z11.3 Encounter for screening for infections with a predominantly sexual mode of transmission (principal); Z11.4 Encounter for screening for human immunodeficiency virus [HIV]; Z20.2 Contact with and (suspected) exposure to infections with a predominantly sexual mode of transmission
CPT/HCPCS: 0353U; 86704; 86780; 86803; 87389; 87480; 87510; 87660

== ENCOUNTER 2022-06-19 08:40 | Outpatient (REF) | payer OTHER, SELFPAY | END 2022-06-19 08:41 | disposition home or self-care (01) | LOC: HO.LNP 08:40 | PROVIDERS: Visit Provider Advanced Practice Midwife | DX: Z01.419 Encounter for gynecological examination (general) (routine) without abnormal findings (principal) | CPT/HCPCS: 88142 ==

== ENCOUNTER 2022-09-19 12:16 | Outpatient (REF) | payer OTHER, SELFPAY ==
[2022-09-21 08:52] LABS: ~Hepatitis B Surface Antibody REACTIVE (Nonreactive)
[2022-09-21 23:53] LABS: TS Negative Control Passed; TS Panel A 0; TS Panel B 0; TS Positive Control Passed; TSpotTB Negative (Negative)
[2022-09-25 09:34] LABS: Rubeola IgG (Measles) >300.00 AU/mL
== END 2022-09-19 12:17 | disposition home or self-care (01) ==
LOC: HO.HMGCLDS 12:16
PROVIDERS: PCP Internal Medicine; Visit Provider Internal Medicine
DX: Z02.0 Encounter for examination for admission to educational institution (principal); Z11.9 Encounter for screening for infectious and parasitic diseases, unspecified
CPT/HCPCS: 36415; 86481; 86706; 86762; 86765; 86787

== ENCOUNTER 2023-02-12 15:32 | Outpatient (AMB) | payer OTHER, SELFPAY ==
[2023-02-12 15:40] VITALS: BP 102/74; PULSE 66; O2SAT 70; BMI 17.3
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
== END 2023-02-12 15:55 | disposition home or self-care (01) ==
PROVIDERS: PCP Internal Medicine; Visit Provider Internal Medicine
DX: Z00.01 Encounter for general adult medical examination with abnormal findings (principal); D64.9 Anemia, unspecified; R63.4 Abnormal weight loss
CPT/HCPCS: 99395

== ENCOUNTER 2023-02-15 12:15 | Outpatient (REF) | payer OTHER, SELFPAY ==
[2023-02-15 13:07] LABS: MANUAL DIFF FLAG NO
[2023-02-15 13:32] LABS: Basophils Percent Auto 0.3 % (0-2); Eosinophils Absolute Auto 0.1 X10*3/uL (0.0-0.4); Eosinophils Percent Auto 1.2 % (0-4); Hematocrit 39.9 % (37.0-47.0); Hemoglobin 12.8 g/dl (12.0-16.0); Imm Gran Abs Auto 0.02 X10*3/uL (0.00-0.03); Imm Gran Pct Auto 0.3 % (0.0-0.4); Lymphocytes Percent Auto 31.3 % (20-40); Mean Corpuscular HGB Conc 32.1 g/dl (31.0-35.0); Mean Corpuscular Hemoglobin 26.6 pg (27.0-33.0); Mean Platelet Volume 11.3 fL (9.4-12.3); Monocytes Absolute Auto 0.6 X10*3/uL (0.1-1.2); Monocytes Percent Auto 9.6 % (2-11); Neutrophils Absolute Auto 3.7 x10*3/uL (2.0-8.3); Neutrophils Percent Auto 57.3 % (45-73); Platelet Count 218 X10*3/uL (160-400); Red Blood Count 4.81 X10*6/uL (4.20-5.50); Red Cell Distribution Width 15.7 % (11.0-16.0); White Blood Count 6.4 X10*3/uL (4.8-10.8)
[2023-02-15 14:26] LABS: Alanine Aminotransferase 10 U/L (0-31); Albumin Level 4.4 g/dL (3.5-5.0); Alkaline Phosphatase 44 U/L (39-117); Anion Gap 14 (12-20); Aspartate Amino Transferase 22 U/L (5-31); Blood Urea Nitrogen 10 mg/dL (9-16); Calcium 9.4 mg/dL (8.4-10.2); Carbon Dioxide 24 mmol/L (22-29); Chloride 106 mmol/L (96-108); Cholesterol 140 mg/dL (<200); Estimated Glomerular Filt Rate > 60; Glucose Fasting 82 mg/dL (60-99); HDL Cholesterol 55 mg/dL (>40); LDL Cholesterol Calculated 73 mg/dL (<100); Potassium 3.8 mmol/L (3.3-5.1); Sodium 140 mmol/L (135-145); TSH reflex Free T4 1.71 uIU/mL (0.32-4.0); Total Protein 7.7 g/dL (6.5-8.0); Triglycerides 63 mg/dL (<150)
[2023-02-15 14:31] LABS: Vitamin B12 916 pg/mL (200-900)
[2023-02-19 16:13] LABS: Vitamin D 25-OH, D2 <4 ng/mL; Vitamin D 25-OH, D3 35 ng/mL; Vitamin D 25-OH, Total 35 ng/mL (30-100)
== END 2023-02-15 12:16 | disposition home or self-care (01) ==
LOC: HO.HMGCLDS 12:15
PROVIDERS: PCP Internal Medicine; Visit Provider Internal Medicine
DX: Z00.01 Encounter for general adult medical examination with abnormal findings (principal); D64.9 Anemia, unspecified; R63.4 Abnormal weight loss
CPT/HCPCS: 36415; 80053; 80061; 82306; 82607; 84443; 85025

== ENCOUNTER 2023-06-26 12:34 | Outpatient (REF) | payer OTHER, SELFPAY ==
[2023-06-27 04:05] LABS: HBc Num1 0.21 S/CO (0.00-0.79); Hepatitis B Core Antibody Nonreactive (Nonreactive)
[2023-06-27 04:22] LABS: HIV AB/AG Nonreactive (Nonreactive); HIV Num 1 0.05 S/CO (0.00-0.99); ~HepC Num1 1.07 S/CO (0.00-0.79); ~Hepatitis C Antibody Reactive (Nonreactive)
[2023-06-29 08:28] LABS: TS Negative Control Passed; TS Panel A 2; TS Panel B 1; TS Positive Control Passed; TSpotTB Negative (Negative)
[2023-06-29 16:09] LABS: Tetanus Antitoxiod Antibody 1.19 IU/mL
== END 2023-06-26 12:35 | disposition home or self-care (01) ==
LOC: HO.HMGCLDS 12:34
PROVIDERS: PCP Internal Medicine; Referring Provider Internal Medicine; Visit Provider Advanced Practice Midwife
DX: Z01.84 Encounter for antibody response examination (principal); Z11.59 Encounter for screening for other viral diseases; Z11.3 Encounter for screening for infections with a predominantly sexual mode of transmission; Z11.1 Encounter for screening for respiratory tuberculosis; Z20.2 Contact with and (suspected) exposure to infections with a predominantly sexual mode of transmission; Z78.9 Other specified health status
CPT/HCPCS: 36415; 86481; 86704; 86735; 86774; 86787; 86803; 87389

== ENCOUNTER 2023-07-05 06:33 | Outpatient (REF) | payer OTHER, SELFPAY ==
[2023-07-05 12:13] LABS: ~HepC Num1 0.19 S/CO (0.00-0.79); ~Hepatitis C Antibody Nonreactive (Nonreactive)
== END 2023-07-05 06:34 | disposition home or self-care (01) ==
LOC: HO.HMGCLDS 06:33
PROVIDERS: PCP Internal Medicine; Visit Provider Advanced Practice Midwife
DX: R76.8 Other specified abnormal immunological findings in serum (principal)
CPT/HCPCS: 36415; 86803

== ENCOUNTER 2023-08-08 11:56 | Outpatient (AMB) | payer OTHER, SELFPAY ==
[2023-08-08 12:10] VITALS: BP 112/72; PULSE 73; TEMP 36.6; O2SAT 99; BMI 17.9
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
== END 2023-08-08 12:50 | disposition home or self-care (01) ==
PROVIDERS: PCP Internal Medicine; Visit Provider Nurse Practitioner Family
DX: H01.004 Unspecified blepharitis left upper eyelid (principal)
CPT/HCPCS: 99213

== ENCOUNTER → 2023-10-01 15:51 | Outpatient (BNVA) | payer SELFPAY | PROVIDERS: PCP Internal Medicine | DX: Z02.83 Encounter for blood-alcohol and blood-drug test (principal) ==

== ENCOUNTER 2023-11-07 11:00 | Outpatient (REF) | payer OTHER, SELFPAY ==
--- NOTE | ~2023-11-07 | US_ITS ---
EXAMINATION: US OBSTETRICAL ULTRASOUND CLINICAL INFORMATION: Early , history of spontaneous , no priors. COMPARISON: None available. LMP: September 13, 2023. Gestational age by maternal dates is 7 weeks 6 days. Estimated date of delivery by maternal dates is June 19, 2024. TECHNIQUE: Real-time ultrasound was performed. FINDINGS: There is a single intrauterine gestational sac with visible yolk sac, embryo/fetus, and cardiac activity. HR: 125 beats per minute. CRL (crown rump length): 0.82 cm (6 weeks 6 days +/- 4 days). DAVINA (estimated date of delivery): June 26, 2024 +/- 4 days. MATERNAL ADNEXA: The right maternal ovary measures 4.0 x 1.7 x 1.6 cm. The left maternal ovary measures 6.5 x 3.0, 3.6 cm. 3.1 x 2.5 x 3.3 cm left ovarian complex cyst with multiple thin and thick septations. Left ovary better visualized on transverse abdominal ultrasound images. Limited visualization of left ovary on transvaginal ultrasound images due to bowel gas. There is a small amount of free fluid in the cul-de-sac. US/US OB pelvic and transvaginal IMPRESSION: 1. Single intrauterine gestation with ultrasound gestational age of 7 weeks 6 days +/- 4 days. 2. Estimated date of delivery is June 26, 2024 +/- 4 days. 3. A 3.3 cm left ovarian complex cyst with multiple thin and thick septations. Left ovary better visualized on transverse abdominal ultrasound images. Limited visualization of left ovary on transvaginal ultrasound images due to bowel gas. 4. Small amount of free fluid in the cul-de-sac. This study was presented today December 02, 2023 for interpretation. Stat results provided at this time as requested by referring provider.
== END 2023-11-07 11:01 | disposition home or self-care (01) ==
LOC: HO.US 11:00
PROVIDERS: PCP Internal Medicine; Visit Provider Advanced Practice Midwife
DX: Z34.91 Encounter for supervision of normal pregnancy, unspecified, first trimester (principal); Z3A.01 Less than 8 weeks gestation of pregnancy
CPT/HCPCS: 76801; 76817

== ENCOUNTER 2023-12-17 10:21 | Outpatient (AMB) | payer OTHER, SELFPAY ==
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
== END 2023-12-17 11:31 | disposition home or self-care (01) ==
LOC: HO.HWS 10:21
PROVIDERS: PCP Internal Medicine; Visit Provider Advanced Practice Midwife
DX: N83.299 Other ovarian cyst, unspecified side (principal); Z87.59 Personal history of other complications of pregnancy, childbirth and the puerperium; Z87.440 Personal history of urinary (tract) infections
CPT/HCPCS: 99213

== ENCOUNTER → 2023-12-17 10:21 | Outpatient (BNVA) | payer OTHER, SELFPAY | PROVIDERS: PCP Internal Medicine; Visit Provider Advanced Practice Midwife | DX: O34.81 Maternal care for other abnormalities of pelvic organs, first trimester (principal); N83.292 Other ovarian cyst, left side; Z3A.13 13 weeks gestation of pregnancy; Z87.59 Personal history of other complications of pregnancy, childbirth and the puerperium | CPT/HCPCS: 99212 ==

== ENCOUNTER 2023-12-18 06:41 | Emergency (ER) | payer OTHER, SELFPAY ==
--- NOTE | ~2023-12-18 | CT_ITS ---
EXAMINATION: CT ANGIOGRAM OF THE CHEST WITH CONTRAST (CT PULMONARY ANGIOGRAM FOR PE) CLINICAL INFORMATION: Reason for Exam chest pressure, tachycardic, elevated DDIMER COMPARISON: No pertinent prior studies are available for comparison. TECHNIQUE: Prior to contrast administration, noncontrast localization images were obtained. Subsequently, multidetector volumetric imaging was performed from the thoracic inlet to below the diaphragms following the administration of 65 mL Omnipaque 350 intravenous contrast. No contrast reaction reported. Sagittal, coronal, and MIP oblique sagittal reformatted images were obtained on the CT workstation, uploaded to PACS, and reviewed. This CT examination was performed using dose optimization techniques as appropriate, variously including the following: *Automated exposure control *Adjustment of mA and/or kV according to patient size (this includes techniques or standardized protocols for targeted exams where dose is matched to indication/reason for exam; i.e. extremities or head) *Use of iterative reconstruction technique DLP: Total exam dose-length product 187 mGy-cm FINDINGS: LUNGS AND PLEURA: Mild respiratory motion on these images through the chest. Lungs are well expanded and without evidence of acute disease. No interstitial infiltrate. No consolidation, pleural effusion or pneumothorax. QUALITY OF STUDY/CONTRAST BOLUS: Satisfactory. PULMONARY ARTERIES: The pulmonary arteries are normal in size. Note that evaluation of peripheral vessels in lower lobes is partially limited by image blurring from mild respiratory motion. However, no evidence of embolic filling defects within the main, lobar or segmental vessels. OTHER CARDIOVASCULAR: The heart size is normal. No pericardial effusion. Thoracic aorta is normal. MEDIASTINUM: No mediastinal mass. The esophagus is normal. No pneumomediastinum. LYMPHATICS: No pathologic sized axillary, hilar or mediastinal lymph nodes. UPPER ABDOMEN: Unremarkable. OSSEOUS STRUCTURES: No acute or suspicious osseous abnormality. CT/CT angio chest PE protocol IMPRESSION: No acute cardiopulmonary disease. No evidence of pulmonary edema or pulmonary embolism.
[2023-12-18 06:46] VITALS: BP 133/85; PULSE 120; RESP 18; TEMP 36.7; O2SAT 100; BMI 19.2
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
--- NOTE | 2023-12-18 06:54 | ECG_ITS ---
Test Reason : chest pain Blood Pressure : / mmHG Vent. Rate : 105 BPM Atrial Rate : 105 BPM P-R Int : 116 ms QRS Dur : 066 ms QT Int : 354 ms P-R-T Axes : 079 093 -11 degrees QTc Int : 467 ms Sinus tachycardia Rightward axis T wave abnormality, consider inferior ischemia Abnormal ECG When compared with ECG of 17-OCT-2013 13:00, No significant change was found Referred By: Clary Huston Electronically Signed By:AUTUMN ZARATE
[2023-12-18 07:26] LABS: MANUAL DIFF FLAG NO
[2023-12-18 07:28] LABS: Basophils Percent Auto 0.1 % (0-2); Eosinophils Percent Auto 0.3 % (0-4); Hematocrit 35.9 % (37.0-47.0); Hemoglobin 12.5 g/dl (12.0-16.0); Imm Gran Abs Auto 0.02 X10*3/uL (0.00-0.03); Imm Gran Pct Auto 0.3 % (0.0-0.4); Lymphocytes Absolute Auto 1.6 X10*3/uL (1.2-4.9); Lymphocytes Percent Auto 22.1 % (20-40); Mean Corpuscular HGB Conc 34.8 g/dl (31.0-35.0); Mean Corpuscular Hemoglobin 28.5 pg (27.0-33.0); Mean Platelet Volume 10.8 fL (9.4-12.3); Monocytes Absolute Auto 0.6 X10*3/uL (0.1-1.2); Monocytes Percent Auto 8.3 % (2-11); Neutrophils Absolute Auto 4.9 x10*3/uL (2.0-8.3); Neutrophils Percent Auto 68.9 % (45-73); Platelet Count 212 X10*3/uL (160-400); Red Blood Count 4.38 X10*6/uL (4.20-5.50); Red Cell Distribution Width 14.8 % (11.0-16.0); White Blood Count 7.1 X10*3/uL (4.8-10.8)
[2023-12-18 07:37] LABS: INTERNATIONAL NORM RATIO 0.9 (0.9-1.1); Prothrombin Time 11.4 SEC (11.1-13.3)
[2023-12-18 07:40] LABS: D Dimer High Sensitivity 261 NG/ML
[2023-12-18 07:41] LABS: Alanine Aminotransferase 8 U/L (0-31); Albumin Level 3.9 g/dL (3.5-5.0); Alkaline Phosphatase 40 U/L (39-117); Anion Gap 14 (12-20); Aspartate Amino Transferase 17 U/L (5-31); Bilirubin Total 0.6 mg/dL (0.0-1.0); Blood Urea Nitrogen 7 mg/dL (9-16); Calcium 9.8 mg/dL (8.4-10.2); Carbon Dioxide 21 mmol/L (22-29); Chloride 106 mmol/L (96-108); Creatinine Clr Calc Pharmacy 85.9; Estimated Glomerular Filt Rate > 60; Glucose Random 86 mg/dL (60-115); Potassium 4.5 mmol/L (3.3-5.1); Sodium 136 mmol/L (135-145); Total Protein 7.3 g/dL (6.5-8.0)
[2023-12-18 07:50] LABS: Troponin-I High Sensitivity < 2.7 ng/L (<3.5-17.0)
[2023-12-18 08:09] VITALS: BP 101/65; PULSE 78; RESP 16; TEMP 36.8; O2SAT 100
[2023-12-18] MEDS: iohexoL 350 MG/ML 100 ML INFUS..BTL IV (08:41)
[2023-12-18 09:01] LABS: Influenza A PCR NEGATIVE (Negative); Influenza B PCR NEGATIVE (Negative); Resp Syncy Virus RNA Qual PCR NEGATIVE (Negative); SARS COV2 PCR INHOUSE NEGATIVE (Negative)
[2023-12-18 10:46] VITALS: BP 105/70; PULSE 78; RESP 18; TEMP 37.2; O2SAT 100
== END 2023-12-18 10:55 | disposition home or self-care (01) ==
PROVIDERS: Physician Assistant; Emergency Provider Emergency Medicine Emergency Medical Services
DX: O26.891 Other specified pregnancy related conditions, first trimester (principal); R07.89 Other chest pain; Z3A.13 13 weeks gestation of pregnancy; Z03.818 Encounter for observation for suspected exposure to other biological agents ruled out
CPT/HCPCS: 0241U; 36415; 71275; 80053; 84484; 85025; 85379; 85610; 93005; 99284; Q9967

== ENCOUNTER → 2023-12-18 06:54 | Outpatient (BNV) | payer OTHER, SELFPAY | PROVIDERS: Emergency Provider Emergency Medicine Emergency Medical Services; Visit Provider Internal Medicine | DX: R00.0 Tachycardia, unspecified (principal) | CPT/HCPCS: 93010 ==

== ENCOUNTER 2023-12-19 13:27 | Outpatient (REF) | payer OTHER, SELFPAY ==
--- NOTE | ~2023-12-19 | US_ITS ---
EXAMINATION: US PELVIS CLINICAL INFORMATION: Left ovarian cyst, follow up from 11/07/2023 week . COMPARISON: Obstetrical ultrasound of 11/07/2023. TECHNIQUE: Transabdominal ultrasound images were obtained of the pelvis to evaluate only the bilateral ovaries. Limited visualization due to bowel gas. Limited OB images ordered only for visualization of the heart rate as requested by referring provider. Obstetrical ultrasound exam was NOT performed. Please note that dedicated obstetrical ultrasound images should be obtained as appropriate employing imaging protocol as directed by referring clinician. FINDINGS: Limited images were obtained of known only to document heart rate of 140 bpm. Transabdominal ultrasound images were obtained of the pelvis to evaluate only the bilateral ovaries. Right ovary measures 1.7 x 1.4 x 1.6 cm, volume 2.0 mL, and is unremarkable. The maternal left ovary measures 2.6 x 1.4 x 2.3 cm, volume 4.4 mL, previously 6.5 x 3.0 x 3.6 cm. Left ovarian 1.3 x 1.1 x 0.6 cm cyst is likely simple and is substantially smaller than the previously identified 3.1 x 2.5 x 3.3 cm complex left ovarian cyst. No significant free fluid is appreciated. US/US pelvic and transvaginal IMPRESSION: 1. Left ovarian 1.3 x 1.1 x 0.6 cm cyst is likely simple and is substantially smaller than the previously identified 3.1 x 2.5 x 3.3 cm complex left ovarian cyst. 2. Limited images were obtained of known only to document heart rate of 140 bpm as requested. Obstetrical ultrasound exam was NOT performed. Please note that dedicated obstetrical ultrasound images should be obtained as appropriate as directed by referring physician. This study was presented today January 01, 2024 for interpretation. Stat results provided at this time as requested by referring provider.
== END 2023-12-19 13:28 | disposition home or self-care (01) ==
LOC: HO.US 13:27
PROVIDERS: PCP Internal Medicine; Visit Provider Advanced Practice Midwife
DX: N83.299 Other ovarian cyst, unspecified side (principal)
CPT/HCPCS: 76830; 76856

== ENCOUNTER 2023-12-23 09:45 | Outpatient (REF) | payer OTHER, SELFPAY ==
[2023-12-23 12:59] LABS: Glucose 1 Hour PP 50gm Dose 85 mg/dL (60-140)
[2023-12-23 13:23] LABS: HBsAGNum1 0.25 S/CO (0.00-0.99); HIV AB/AG Nonreactive (Nonreactive); HIV Num 1 0.05 S/CO (0.00-0.99); Hepatitis B Surface Antigen Negative (Negative); ~HepC Num1 0.27 S/CO (0.00-0.79); ~Hepatitis C Antibody Nonreactive (Nonreactive)
[2023-12-23 15:06] LABS: Amphetamine Screen Urine Not Detected (Not Detect); Barbiturates, Urine Not Detected (Not Detect); Benzodiazepines Screen Urine Not Detected (Not Detect); Buprenorphine Scr Not Detected (Not Detect); Cannabinoid Screen Urine Not Detected (Not Detect); Cocaine Screen Urine Not Detected (Not Detect); Fentanyl, urine Not Detected (Not Detect); Methadone Screen, Urine Not Detected (Not Detect); Opiate Screen Urine Not Detected (Not Detect); Oxycodone Screen Urine Not Detected (Not Detect); Phencyclidine Screen Urine Not Detected (Not Detect)
[2023-12-24 04:19] LABS: Syphilis Screen Nonreactive (Nonreactive)
[2024-01-06 17:49] LABS: CF Ethnicity NG; Cystic Fibrosis NEGATIVE (NEGATIVE)
== END 2023-12-23 09:46 | disposition home or self-care (01) ==
LOC: HO.LAB 09:45
PROVIDERS: PCP Internal Medicine; Visit Provider Advanced Practice Midwife
DX: Z34.91 Encounter for supervision of normal pregnancy, unspecified, first trimester (principal); Z3A.13 13 weeks gestation of pregnancy
CPT/HCPCS: 80307; 81220; 82950; 86762; 86780; 86787; 86803; 86850; 86900; 87086; 87340; 87389; 99212

== ENCOUNTER 2023-12-23 09:45 | Outpatient (AMB) | payer OTHER, SELFPAY ==
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
[2023-12-23 09:49] VITALS: BMI 19.5
== END 2023-12-23 13:55 | disposition home or self-care (01) ==
PROVIDERS: PCP Internal Medicine; Visit Provider Advanced Practice Midwife
DX: Z34.90 Encounter for supervision of normal pregnancy, unspecified, unspecified trimester (principal)
CPT/HCPCS: 25942

== ENCOUNTER 2024-01-01 10:09 | Outpatient (REF) | payer OTHER, SELFPAY | END 2024-01-01 10:10 | disposition home or self-care (01) | LOC: HO.LAB 10:09 | PROVIDERS: PCP Internal Medicine; Visit Provider Advanced Practice Midwife | DX: O09.32 Supervision of pregnancy with insufficient antenatal care, second trimester (principal); O99.342 Other mental disorders complicating pregnancy, second trimester; O34.82 Maternal care for other abnormalities of pelvic organs, second trimester; O98.512 Other viral diseases complicating pregnancy, second trimester; N83.299 Other ovarian cyst, unspecified side; B00.2 Herpesviral gingivostomatitis and pharyngotonsillitis; Z87.59 Personal history of other complications of pregnancy, childbirth and the puerperium; Z20.2 Contact with and (suspected) exposure to infections with a predominantly sexual mode of transmission; Z3A.14 14 weeks gestation of pregnancy | CPT/HCPCS: 81003; 99212 ==

== ENCOUNTER 2024-01-01 10:09 | Outpatient (AMB) | payer OTHER, SELFPAY ==
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
[2024-01-01 10:15] VITALS: BP 116/76; BMI 19.8
== END 2024-01-01 11:29 | disposition home or self-care (01) ==
PROVIDERS: PCP Internal Medicine; Visit Provider Advanced Practice Midwife
DX: Z34.82 Encounter for supervision of other normal pregnancy, second trimester (principal)
CPT/HCPCS: 25942; 99213; S3005

== ENCOUNTER 2024-01-01 10:56 | Outpatient (REF) | payer OTHER, SELFPAY ==
[2024-01-01 16:33] LABS: Bacterial Vaginosis PCR NEGATIVE (Negative); Candida Group PCR NOT DETECTED (Not Detect); Candida glab krusei PCR NOT DETECTED (Not Detect); Trichomonas vaginalis PCR NOT DETECTED (Not Detect)
[2024-01-01 17:13] LABS: CT PCR NOT DETECTED (Not Detect.); NG PCR NOT DETECTED (Not Detect.)
== END 2024-01-01 10:57 | disposition home or self-care (01) ==
LOC: HO.LNP 10:56
PROVIDERS: Visit Provider Advanced Practice Midwife
DX: Z34.90 Encounter for supervision of normal pregnancy, unspecified, unspecified trimester (principal); Z20.2 Contact with and (suspected) exposure to infections with a predominantly sexual mode of transmission
CPT/HCPCS: 0352U; 87491; 87591

== ENCOUNTER 2024-02-18 15:26 | Outpatient (AMB) | payer OTHER, SELFPAY ==
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
[2024-02-18 15:29] VITALS: BP 102/68; PULSE 92; O2SAT 98; BMI 21.0
== END 2024-02-18 15:55 | disposition home or self-care (01) ==
PROVIDERS: PCP Internal Medicine; Visit Provider Internal Medicine
DX: Z00.00 Encounter for general adult medical examination without abnormal findings (principal); Z3A.22 22 weeks gestation of pregnancy

== ENCOUNTER → 2024-02-18 15:26 | Outpatient (BNVA) | payer OTHER, SELFPAY | PROVIDERS: PCP Internal Medicine; Visit Provider Internal Medicine | DX: Z00.00 Encounter for general adult medical examination without abnormal findings (principal) | CPT/HCPCS: 96127; 99395 ==

== ENCOUNTER 2024-09-01 07:02 | Emergency (ER) | payer OTHER, SELFPAY ==
--- NOTE | ~2024-09-01 | XR_ITS ---
EXAMINATION: XR CHEST CLINICAL INFORMATION: dyspnea COMPARISON: None available. TECHNIQUE: Frontal view of the chest was obtained. FINDINGS: Haziness in the medial right lower hemithorax. No pleural effusion. No pneumothorax. No hyperinflation. Cardiomediastinal silhouette size is normal. Mild S-shaped curvature of the thoracic spine. XR/XR chest 1V IMPRESSION: Recommend lateral projection for further evaluation of the medial lower right hemithorax. Electronically signed by: Wiliam Parks MD 09/01/2024 07:55 AM EDT
--- NOTE | ~2024-09-01 | XR_ITS ---
EXAMINATION: XR CHEST CLINICAL INFORMATION: dyspnea COMPARISON: PA view earlier same day. TECHNIQUE: Lateral view of the chest was obtained. FINDINGS: Pectus excavatum. The lungs are clear. No effusions. No additional osseous abnormality. XR/XR chest 1V IMPRESSION: Pectus excavatum, explaining opacity in the right paramediastinal region on the PA view. The lungs are clear. Electronically signed by: Norm Willis MD 09/01/2024 08:44 AM EDT
[2024-09-01 07:05] VITALS: BP 140/81; PULSE 111; RESP 18; TEMP 37.3; O2SAT 98; BMI 20.6
[2024-09-01 07:35] LABS: MANUAL DIFF FLAG NO
[2024-09-01 07:43] LABS: Basophils Percent Auto 0.4 % (0-2); Eosinophils Absolute Auto 0.1 X10*3/uL (0.0-0.4); Eosinophils Percent Auto 1.2 % (0-4); Hemoglobin 12.3 g/dl (12.0-16.0); Imm Gran Abs Auto 0.02 X10*3/uL (0.00-0.03); Imm Gran Pct Auto 0.3 % (0.0-0.4); Lymphocytes Percent Auto 38.7 % (20-40); Mean Corpuscular HGB Conc 33.2 g/dl (31.0-35.0); Mean Corpuscular Hemoglobin 26.1 pg (27.0-33.0); Mean Corpuscular Volume 78.6 fL (80.0-98.0); Mean Platelet Volume 11.1 fL (9.4-12.3); Monocytes Absolute Auto 0.7 X10*3/uL (0.1-1.2); Monocytes Percent Auto 8.8 % (2-11); Neutrophils Absolute Auto 3.9 x10*3/uL (2.0-8.3); Neutrophils Percent Auto 50.6 % (45-73); Platelet Count 254 X10*3/uL (160-400); Red Blood Count 4.71 X10*6/uL (4.20-5.50); Red Cell Distribution Width 16.4 % (11.0-16.0); White Blood Count 7.6 X10*3/uL (4.8-10.8)
--- NOTE | 2024-09-01 08:07 | ECG_ITS ---
Test Reason : DYSPNEA Blood Pressure : */* mmHG Vent. Rate : 112 BPM Atrial Rate : 112 BPM P-R Int : 134 ms QRS Dur : 68 ms QT Int : 344 ms P-R-T Axes : 74 90 2 degrees QTcB Int : 469 ms Sinus tachycardia Possible Left atrial enlargement Rightward axis T wave abnormality, consider inferior ischemia Abnormal ECG When compared with ECG of 18-Dec-2023 06:55, Nonspecific T wave abnormality now evident in Lateral leads Referred By: Juani Esquivel Electronically Signed By: Endy Hanks
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
[2024-09-01 08:24] LABS: Influenza A PCR NEGATIVE (Negative); Influenza B PCR NEGATIVE (Negative); Resp Syncy Virus RNA Qual PCR NEGATIVE (Negative); SARS COV2 PCR INHOUSE NEGATIVE (Negative)
[2024-09-01 08:36] LABS: D Dimer High Sensitivity 191 NG/ML
[2024-09-01 08:39] LABS: Alanine Aminotransferase 43 U/L (0-31); Albumin Level 4.5 g/dL (3.5-5.0); Anion Gap 12 (12-20); Aspartate Amino Transferase 41 U/L (5-31); Bilirubin Total 0.4 mg/dL (0.0-1.0); Blood Urea Nitrogen 11 mg/dL (9-16); Calcium 9.7 mg/dL (8.4-10.2); Carbon Dioxide 24 mmol/L (22-29); Chloride 108 mmol/L (96-108); Creatinine Clr Calc Pharmacy 76.2; Estimated Glomerular Filt Rate > 60; Glucose Random 100 mg/dL (60-115); Potassium 3.4 mmol/L (3.3-5.1); Sodium 141 mmol/L (135-145); Total Protein 7.9 g/dL (6.5-8.0)
[2024-09-01 08:49] LABS: Alkaline Phosphatase 58 U/L (39-117)
[2024-09-01 09:37] LABS: Troponin-I High Sensitivity < 2.7 ng/L (<3.5-17.0)
[2024-09-01 09:54] VITALS: BP 106/60; PULSE 106; RESP 15; TEMP 36.7; O2SAT 100
[2024-09-01 09:58] VITALS: BP 106/60; PULSE 106; RESP 15; TEMP 36.7; O2SAT 100
== END 2024-09-01 09:58 | disposition home or self-care (01) ==
PROVIDERS: Emergency Provider Emergency Medicine; PCP Internal Medicine
DX: R06.09 Other forms of dyspnea (principal); R06.02 Shortness of breath; Z03.818 Encounter for observation for suspected exposure to other biological agents ruled out
CPT/HCPCS: 0241U; 36415; 71045; 80053; 84484; 85025; 85379; 93005; 99283; 99284

== ENCOUNTER → 2024-09-01 07:35 | Outpatient (BNV) | payer OTHER, SELFPAY | PROVIDERS: Emergency Provider Emergency Medicine; PCP Internal Medicine; Visit Provider Radiology Diagnostic Radiology | DX: Q67.6 Pectus excavatum (principal); R06.00 Dyspnea, unspecified | CPT/HCPCS: 71045 ==

== ENCOUNTER → 2024-09-01 08:07 | Outpatient (BNV) | payer OTHER, SELFPAY | PROVIDERS: Emergency Provider Emergency Medicine; PCP Internal Medicine; Visit Provider Internal Medicine Cardiovascular Disease | DX: R00.0 Tachycardia, unspecified (principal) | CPT/HCPCS: 93010 ==

== ENCOUNTER 2025-02-19 15:03 | Outpatient (AMB) | payer OTHER, SELFPAY ==
[2025-02-19 15:11] VITALS: BP 104/60; PULSE 99; TEMP 37.3; O2SAT 99; BMI 18.8
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
== END 2025-02-19 15:45 | disposition home or self-care (01) ==
LOC: HO.HMCC 15:04
PROVIDERS: PCP Internal Medicine; Visit Provider Internal Medicine
DX: Z00.01 Encounter for general adult medical examination with abnormal findings (principal); F41.1 Generalized anxiety disorder; R00.0 Tachycardia, unspecified; R00.2 Palpitations; R10.13 Epigastric pain; R13.10 Dysphagia, unspecified; Z23 Encounter for immunization

== ENCOUNTER → 2025-02-19 15:03 | Outpatient (BNVA) | payer OTHER, SELFPAY | PROVIDERS: PCP Internal Medicine; Visit Provider Internal Medicine | DX: Z00.01 Encounter for general adult medical examination with abnormal findings (principal); F41.1 Generalized anxiety disorder; R00.2 Palpitations; R00.0 Tachycardia, unspecified; K21.9 Gastro-esophageal reflux disease without esophagitis; R10.13 Epigastric pain; R13.10 Dysphagia, unspecified; Z23 Encounter for immunization | CPT/HCPCS: 90471; 90656; 96127; 99212; 99395 ==

== ENCOUNTER 2025-02-23 09:22 | Outpatient (REF) | payer OTHER, SELFPAY ==
[2025-02-23 13:14] LABS: MANUAL DIFF FLAG NO
[2025-02-23 13:41] LABS: Hematocrit 37.1 % (37.0-47.0); Hemoglobin 11.9 g/dl (12.0-16.0); Imm Gran Abs Auto 0.01 X10*3/uL (0.00-0.03); Imm Gran Pct Auto 0.2 % (0.0-0.4); Lymphocytes Absolute Auto 1.7 X10*3/uL (1.2-4.9); Mean Corpuscular HGB Conc 32.1 g/dl (31.0-35.0); Mean Corpuscular Hemoglobin 25.5 pg (27.0-33.0); Mean Corpuscular Volume 79.4 fL (80.0-98.0); NRBC Abs Auto 0.000 X10*3/uL (0.0-0.012); NRBC Pct Auto 0.0 /100WBC (0.0-0.2); Platelet Count 254 X10*3/uL (160-400); Red Blood Count 4.67 X10*6/uL (4.20-5.50); White Blood Count 5.2 X10*3/uL (4.8-10.8)
[2025-02-23 16:16] LABS: Alanine Aminotransferase 16 U/L (0-31); Albumin Level 4.7 g/dL (3.5-5.0); Alkaline Phosphatase 51 U/L (39-117); Anion Gap 12 (12-20); Aspartate Amino Transferase 32 U/L (5-31); Blood Urea Nitrogen 8 mg/dL (9-16); Calcium 9.5 mg/dL (8.4-10.2); Carbon Dioxide 25 mmol/L (22-29); Chloride 107 mmol/L (96-108); Cholesterol 152 mg/dL (<200); Estimated Glomerular Filt Rate > 60; HDL Cholesterol 51 mg/dL (>40); Potassium 3.8 mmol/L (3.3-5.1); Sodium 140 mmol/L (135-145); Total Protein 7.7 g/dL (6.5-8.0); Triglycerides 137 mg/dL (<150)
[2025-02-23 17:25] LABS: Free T4 (Free Thyroxine) 0.86 ng/dL (0.71-1.85)
[2025-02-27 12:28] LABS: Vitamin D 25-OH, D2 <4 ng/mL; Vitamin D 25-OH, D3 34 ng/mL; Vitamin D 25-OH, Total 34 ng/mL (30-100)
== END 2025-02-23 09:23 | disposition home or self-care (01) ==
LOC: HO.HMGCLDS 09:22
PROVIDERS: PCP Internal Medicine; Visit Provider Internal Medicine
DX: R10.13 Epigastric pain (principal); R00.2 Palpitations; R00.0 Tachycardia, unspecified; F41.1 Generalized anxiety disorder
CPT/HCPCS: 36415; 80053; 80061; 82306; 84439; 84443; 85025

== ENCOUNTER 2025-03-13 13:06 | Outpatient (REF) | payer OTHER, SELFPAY ==
[2025-03-16 17:23] LABS: Thyroglobulin Antibodies 58 IU/mL (< or = 1)
== END 2025-03-13 13:07 | disposition home or self-care (01) ==
LOC: HO.HMGCLDS 13:06
PROVIDERS: PCP Internal Medicine; Visit Provider Internal Medicine
DX: R79.89 Other specified abnormal findings of blood chemistry (principal)
CPT/HCPCS: 36415; 84443; 86800

== ENCOUNTER 2025-03-18 08:25 | Outpatient (AMB) | payer OTHER, SELFPAY ==
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
== END 2025-03-18 09:40 | disposition home or self-care (01) ==
LOC: HO.HMCC 08:25
PROVIDERS: PCP Internal Medicine; Visit Provider Internal Medicine
DX: E06.3 Autoimmune thyroiditis (principal); D50.9 Iron deficiency anemia, unspecified